=== PATIENT | male | born 1935 | race Caucasian/White ===

== ENCOUNTER 2016-05-12 19:20 | Inpatient (IN) | payer BC, OTHER ==
[~2016-05-12] VITALS: Ht 172.7 cm; Wt 64.5 kg
--- NOTE | 2016-05-12 21:14 | ERA ---
ER Documentation Chief Complaint Date/Time DATE: 05/12/16 TIME: 21:14 Chief Complaint feeling weak for a week and unsteady HPI The patient is a 81-year-old male, presenting to the ER because of headache, weakness, decreased appetite, intermittent cough for 1 week. His symptoms are getting worse and he is unable to walk because of the weakness. He fell once with a small hematoma in the right frontal area. He denies syncope, near syncope, neck pain, chest pain, dyspnea, abdominal pain, vomiting, dysuria, diarrhea, constipation. He complains of mild low back pain. He does not smoke nor drink Past medical history: Diabetes mellitus, dyslipidemia Past surgical history: None ROS All systems reviewed and are negative except as per history of present illness. Medications Home Meds Reported Medications Simvastatin* (Zocor*) 40 Mg Tablet, 40 MG PO DAILY, #30 TAB 05/12/16 Aspirin* (Aspirin* EC) 81 Mg Tablet.dr, 81 MG PO DAILY, TAB 05/12/16 Glimepiride* (Glimepiride*) Unknown Strength Tablet, MG PO WITH BREAKFAST, TAB 05/12/16 Metformin Hcl* (Metformin Hcl*) 500 Mg Tablet, 500 MG PO WITH BREAKFAST DINNE, # 60 TAB 05/12/16 Allergies Allergies: Coded Allergies: No Known Allergy (Unverified , 05/12/16) Physical Exam Vitals Vital Signs Date Time Temp Pulse Resp B/P Pulse Ox O2 Delivery O2 Flow Rate FiO2 05/12/16 22:36 67 20 97 21 05/12/16 21:31 Nasal Cannula 2 05/12/16 21:11 98.9 69 20 142/62 97 Room Air 05/12/16 19:56 100.9 79 18 139/62 95 Physical Exam Const: No acute distress. Head: Atraumatic. Right frontal ecchymosis and small hematoma Eyes: Normal Conjunctiva. ENT: Normal External Ears, Nose and Mouth. Neck: Full range of motion. No meningismus. Resp: Right lung crackle, bilateral wheezes Cardio: Regular rate and rhythm, no murmurs. Abd: Soft, non distended, normal bowel sounds, non tender. Skin: No petechiae or rashes. Back: No midline or flank tenderness. Ext: No cyanosis, or edema. Neur: Awake and alert. No focal deficit Psych: Normal Mood and Affect. Result Diagram: 05/12/16214405/12/162144 Results 24 hrs Laboratory Tests Test 05/12/16 21:45 05/12/16 22:16 Activated Partial Thromboplast Time 44.0Sec Alanine Aminotransferase (ALT/SGPT) 29IU/L Albumin 4.4g/dl Albumin/Globulin Ratio 1.00 Alkaline Phosphatase 71IU/L Anion Gap 22 Aspartate Amino Transf (AST/SGOT) 134IU/L Basophils # 0.010^3/ul Basophils % 0.1% Blood Urea Nitrogen 31mg/dl Calcium Level 9.9mg/dl Carbon Dioxide Level 25mmol/L Chloride Level 95mmol/L Creatinine 0.99mg/dl Direct Bilirubin 0.00mg/dl Eosinophils # 0.010^3/ul Eosinophils % 0.1% Globulin 4.40g/dl Glucose Level 141mg/dl Hematocrit 46.3% Hemoglobin 15.7g/dl INR International Normalized Ratio 1.03 Indirect Bilirubin 0.4mg/dl Lactic Acid Level 1.8mmol/L Lymphocytes # 0.810^3/ul Lymphocytes % 13.3% Mean Corpuscular Hemoglobin 31.0pg Mean Corpuscular Hemoglobin Concent 33.8g/dl Mean Corpuscular Volume 91.5fl Mean Platelet Volume 8.7fl Monocytes # 0.710^3/ul Monocytes % 12.7% Neutrophils # 4.310^3/ul Neutrophils % 73.8% Nucleated Red Blood Cells # 0.010^3/ul Nucleated Red Blood Cells % 0.0/100WBC Platelet Count 71020^3/UL Potassium Level 5.7mmol/L Prothrombin Time 13.5Sec Prothrombin Time Ratio 1.1 Red Blood Count 5.0610^6/ul Red Cell Distribution Width 13.4% Sodium Level 136mmol/L Total Bilirubin 0.4mg/dl Total Protein 8.8g/dl Troponin I 6.720ng/ml White Blood Count 5.910^3/ul Urine Bacteria MANY Urine Bilirubin 2+ Urine Clarity CLOUDY Urine Coarse Granular Casts FEW Urine Color YELLOW Urine Glucose NEGATIVE% Urine Hemoglobin 3+ Urine Ictotest NEGATIVE Urine Ketones 40 Urine Leukocyte Esterase NEGATIVE Urine Microscopic RBC 2-5/HPF Urine Microscopic WBC 0-2/HPF Urine Nitrite NEGATIVE Urine Specific [place] >=1.030 Urine Squamous Epithelial Cells RARE Urine Total Protein 4+ Urine Urobilinogen 1.0 E.U./dL Urine pH 5.5 Current Medications Medications (Trade) Dose Ordered Sig/Clark Route PRN Reason Start Time Stop Time Status Last Admin Dose Admin Levalbuterol (Xopenex Neb) 1.25 mg ONCE ONCE HHN 05/12/16 21:30 05/12/16 21:31 DC 05/12/16 22:36 Ipratropium [place] 0.5 mg 0.5 mg ONCE ONCE HHN 05/12/16 21:30 05/12/16 21:31 DC 05/12/16 22:36 Vancomycin HCl 250 ml @ 125 mls/hr ONCE IVPB 05/12/16 22:30 05/13/16 00:29 Cefepime HCl 50 ml @ 100 mls/hr ONCE ONCE IVPB 05/12/16 22:30 05/12/16 22:59 DC 05/12/16 22:46 Sodium Chloride (NS) 2,050 ml @ 2,050 mls/hr BOLUS X1 ONCE IV 05/12/16 22:30 05/12/16 23:29 05/12/16 22:46 Enoxaparin Sodium (Lovenox) 65 mg Q12 SC 05/12/16 23:00 Aspirin (Halfprin) 81 mg DAILY PO 05/13/16 09:00 Atorvastatin Calcium (Lipitor) 20 mg DAILY@21 PO 05/13/16 21:00 Insulin Aspart (Novolog Insulin Pen) NOVOLOG *MODERATE* ALGORI... Q4 SC 05/13/16 01:00 Miscellaneous Information (* Miscellaneous Pharmacy Order) HYPOGLYCEMIA PROTOCOL w... ONCE ONCE XX 05/12/16 23:00 05/12/16 23:01 DC Miscellaneous Information (* Miscellaneous Pharmacy Order) Discontinue Glyburide, Glipizide,... ONCE ONCE XX 05/12/16 23:00 05/12/16 23:01 DC Miscellaneous Information (* Miscellaneous Pharmacy Order) Discontinue all previ... ONCE ONCE XX 05/12/16 23:00 05/12/16 23:01 DC Miscellaneous Information 1 ea NOTE XX 05/12/16 23:00 Glucose (Glutose) 15 gm Q15M PRN PO DECREASED GLUCOSE 05/12/16 23:00 Glucose (Glutose) 22.5 gm Q15M PRN PO DECREASED GLUCOSE 05/12/16 23:00 Dextrose (D50w Syringe) 25 ml Q15M PRN IV DECREASED GLUCOSE 05/12/16 23:00 Dextrose (D50w Syringe) 50 ml Q15M PRN IV DECREASED GLUCOSE 05/12/16 23:00 Glucagon (Glucagen) 1 mg Q15M PRN IM DECREASED GLUCOSE 05/12/16 23:00 Glucose (Glutose) 15 gm Q15M PRN BUCCAL DECREASED GLUCOSE 05/12/16 23:00 IV Flush (NS 3 ml) 3 ml PER PROTOCOL IV 05/12/16 23:00 Ondansetron HCl (Zofran Inj) 4 mg Q6H PRN IV NAUSEA AND/OR VOMITING 05/12/16 23:00 Acetaminophen (Tylenol Tab) 650 mg Q6H PRN PO PAIN LEVEL 1-3 OR FEVER 05/12/16 23:00 Morphine Sulfate (morphine) 2 mg Q4H PRN IV PAIN LEVEL 7-10 05/12/16 23:00 Docusate Sodium (Colace) 100 mg Q12H PRN PO CONSTIPATION 05/12/16 23:00 Magnesium Hydroxide (Milk Of Mag) 30 ml DAILY PRN PO CONSTIPATION 05/12/16 23:00 Bisacodyl (Dulcolax Supp) 10 mg DAILY PRN [place] CONSTIPATION 05/12/16 23:00 Famotidine (Pepcid) 20 mg Q12 PO 05/13/16 09:00 Aspirin (Aspirin) 325 mg ONCE ONCE PO 05/12/16 23:30 05/12/16 23:31 UNV Enoxaparin Sodium 70 mg 70 mg ONCE SC 05/12/16 23:30 UNV Levofloxacin/ Dextrose (Levaquin 750 Mg/ D5W 150 ml (Pmx)) 150 ml @ 100 mls/hr Q24H IVPB 05/13/16 09:00 UNV Procedures/MDM EKG: Read by emergency physician at 7:29 PM Rate/Rhythm: Normal Sinus Rhythm 80 beats/min QRS, ST, T-waves: No ST elevation, no T inversion, THEODORE Impression: Abnormal EKG EKG: Read by emergency physician at 10:34 PM Rate/Rhythm: Normal Sinus Rhythm 66 beats/min QRS, ST, T-waves: No ST elevation, no T inversion, THEODORE Impression: Abnormal EKG [place] [id number] Radiology Main Line: [phone] DIAGNOSTIC IMAGING REPORT Patient: DINORA HERNANDEZ : 1935 Age: 81 Sex: M MR #: [id number] DOS: 05/12/162121 Ordering MD: MANINDER SHAY MD Location: E/R Room/Bed: PROCEDURE: XR Chest. CLINICAL INDICATION: Possible sepsis. TECHNIQUE: Single frontal view of the chest was obtained COMPARISON: None FINDINGS: Cardiomegaly. Dense air space disease in the right upper lobe compatible with pneumonia. Left lung is clear. There is no pleural effusion or pneumothorax. IMPRESSION: Dense right upper lobe pneumonia. RPTAT: UU Physician Dada Date Time Electronically viewed and signed by Sancho Suresh Physician on 05/12/2016 21:54 RS/ CC: MANINDER SHAY MD [place] [id number] Radiology Main Line: [phone] DIAGNOSTIC IMAGING REPORT Patient: DINORA HERNANDEZ : 1935 Age: 81 Sex: M MR #: [id number] DOS: 05/12/16 214 Ordering MD: MANINDER SHAY MD Location: E/R Room/Bed: PROCEDURE: CT brain without contrast. CLINICAL INDICATION: Headache. TECHNIQUE: CT scan of the brain was performed on a single slice CT scanner. Contiguous axial images were obtained from the skull base to the vertex without intravenous contrast. Images were reviewed on the PACS workstation. One or more of the following dose reduction techniques were used: - Automated exposure control. - Adjustment of the mA and/or kV according to patient size. - Use of iterative reconstruction technique. COMPARISON: None. FINDINGS: The ventricles and cortical sulci are prominent consistent with moderate age related volume loss. There are patchy areas of low attenuation within the periventricular and subcortical white matter consistent with mild chronic ischemic changes secondary to small vessel disease. There is no mass effect or midline shift. There is no intracranial hemorrhage or abnormal extra-axial collection. There are atherosclerotic calcifications within bilateral distal internal carotid arteries. The calvarium is intact. There is no evidence of fracture. Visualized paranasal sinuses and mastoid air cells are clear. IMPRESSION: No acute intracranial abnormality identified. Moderate age related volume loss and mild chronic ischemic white matter disease. Cerebral atherosclerosis. .Derrell Hguhes MD, MD Date Time Electronically viewed and signed by .Derrell Hughes MD, MD on 05/12/2016 22:59 .T/ CC: MANINDER SHAY MD MEDICAL MAKING DECISION: The patient is a 81-year-old male, presenting with acute pneumonia, acute non-STEMI, acute dehydration. He was treated with aspirin 325 mg p.o., Lovenox 1 mg/kg subcutaneously, vancomycin IV, cefepime IV , normal saline 30 mL/kg IV. The differential diagnoses considered include but are not limited to asthma, COPD, pneumonia, pulmonary embolus, pleural effusion, congestive heart failure. Critical Care: Time: 35 minutes excluding all billable procedures. Treatments/Evaluations: Close monitoring and treatment of unstable vital signs, cardiorespiratory, and neurologic status, while maintaining tight balance of fluid, respiratory, and cardiac interventions. Departure Diagnosis: Primary Impression: Pneumonia Additional Impressions: Non-STEMI (non-ST elevated myocardial infarction) Dehydration Condition: Serious Comments I discussed the findings with the patient. I discussed the patient with his physician Dr. Taylor who was made aware of the lab, the treatment, the patient condition. The patient is admitted to telemetry at 10 PM The patient's blood pressure was elevated (>120/80) but appears stable without evidence of hypertension emergency or urgency. The patient was counseled about the risks of hypertension and urged to pursue outpatient monitoring and therapy within a week after discharge with their primary care physician. MANINDER SHAY MD May 12, 2016 21:14
[2016-05-12] MEDS ORDERED: LEVALBUTEROL (NEB) 1.25 MG/0.5 ML AMP HHN ONE (21:30)
[2016-05-12] MEDS ORDERED: IPRATROPIUM (NEB) 0.5 MG/2.5 ML AMP HHN ONE (21:30)
[2016-05-12] MEDS ORDERED: METF-382 PO (21:43)
[2016-05-12] MEDS ORDERED: GLIM2TAB PO (21:43)
[2016-05-12] MEDS ORDERED: ASPI-664 PO (21:43)
[2016-05-12] MEDS ORDERED: SIMV40TA2 PO (21:44)
--- NOTE | 2016-05-12 21:55 | RADRPT ---
PROCEDURE: XR Chest. CLINICAL INDICATION: Possible sepsis. TECHNIQUE: Single frontal view of the chest was obtained COMPARISON: None FINDINGS: Cardiomegaly. Dense air space disease in the right upper lobe compatible with pneumonia. Left lung is clear. There is no pleural effusion or pneumothorax. IMPRESSION: Dense right upper lobe pneumonia. RPTAT: UU Physician Dada Date Time Electronically viewed and signed by Sancho Suresh Physician on 05/12/2016 21:54 RS/
[2016-05-12 22:12] LABS: ALBUMIN 4.4 g/dl (3.3-4.9)
[2016-05-12 22:13] LABS: BASOPHILS % 0.1 % (0.0-2.0); EOSINOPHILS % 0.1 % (0.0-7.0); HEMATOCRIT 46.3 % (42.0-52.0); HEMOGLOBIN 15.7 g/dl (14.0-18.0); LYMPHOCYTES # 0.8 10^3/ul (0.8-2.9); LYMPHOCYTES % 13.3 % (15.0-51.0); MEAN CORPUSCULAR HGB CONC 33.8 g/dl (32.0-37.0); MEAN CORPUSCULAR VOLUME 91.5 fl (82.0-101.0); MEAN PLATELET VOLUME 8.7 fl (7.4-10.4); MONOCYTE # 0.7 10^3/ul (0.3-0.9); MONOCYTES % 12.7 % (0.0-11.0); NEUTROPHIL # 4.3 10^3/ul (1.6-7.5); NEUTROPHILS % 73.8 % (39.0-77.0); PLATELET COUNT 275 10^3/UL (140-440); POTASSIUM 5.7 mmol/L (3.5-5.1); RED BLOOD COUNT 5.06 10^6/ul (4.70-6.10); RED CELL DISTRIBUTION WIDTH 13.4 % (11.5-14.5); UNCORRECTED WBC 5.9 10^3/ul (4.8-10.8); WHITE BLOOD COUNT 5.9 10^3/ul (4.8-10.8)
[2016-05-12 22:14] LABS: CREATININE 0.99 mg/dl (0.61-1.24)
[2016-05-12 22:15] LABS: BILIRUBIN,INDIRECT 0.4 mg/dl (0-1.1); BILIRUBIN,TOTAL 0.4 mg/dl (0.2-1.3); CALCIUM 9.9 mg/dl (8.4-10.2); TOTAL PROTEIN 8.8 g/dl (6.1-8.1)
[2016-05-12 22:17] LABS: CONDITION 1
[2016-05-12 22:27] LABS: TROPONIN-I 6.72 ng/ml (0.00-0.12)
[2016-05-12] MEDS ORDERED: SOD CHLORIDE 0.9% 2,050 ML IV ONE (22:30)
[2016-05-12] MEDS ORDERED: CEFEPIME 1GM/50 ML (PMX) 50 ML IVPB ONE (22:30)
[2016-05-12] MEDS ORDERED: VANCOMYCIN 1 GM (PMX) 250 ML IVPB SCH (22:30)
[2016-05-12 22:43] LABS: ADD UMIC YES; URINE BILIRUBIN (Dip) 2+ (NEGATIVE); URINE BLOOD (Dip) 3+ (NEGATIVE); URINE COLOR YELLOW (YELLOW); URINE GLUCOSE (Dip) NEGATIVE (NEGATIVE); URINE KETONES (Dip) 40 (NEGATIVE); URINE LEUKOCYTE ESTERASE (Dip) NEGATIVE (NEGATIVE); URINE NITRITE (Dip) NEGATIVE (NEGATIVE); URINE TOTAL PROTEIN (Dip) 4+ (NEGATIVE); URINE UROBILINOGEN (Dip) 1.0 E.U./dL (0.1-1.0)
[2016-05-12 22:58] LABS: SQUAMOUS EPITHELIAL CELL,UR RARE
[2016-05-12 22:59] LABS: BACTERIA,URINE MANY
--- NOTE | 2016-05-12 22:59 | RADRPT ---
PROCEDURE: CT brain without contrast. CLINICAL INDICATION: Headache. TECHNIQUE: CT scan of the brain was performed on a single slice CT scanner. Contiguous axial chelsie ges were obtained from the skull base to the vertex without intravenous contrast. Images were revie wed on the PACS workstation. One or more of the following dose reduction techniques were used: - Automated exposure control. - Adjustment of the mA and/or kV according to patient size. - Use of iterative reconstruction technique. COMPARISON: None. FINDINGS: The ventricles and cortical sulci are prominent consistent with moderate age related volume loss. T here are patchy areas of low attenuation within the periventricular and subcortical white matter con sistent with mild chronic ischemic changes secondary to small vessel disease. There is no mass effe ct or midline shift. There is no intracranial hemorrhage or abnormal extra-axial collection. There are atherosclerotic calcifications within bilateral distal internal carotid arteries. The calvarium is intact. There is no evidence of fracture. Visualized paranasal sinuses and mastoi d air cells are clear. IMPRESSION: No acute intracranial abnormality identified. Moderate age related volume loss and mild chronic ischemic white matter disease. Cerebral atherosclerosis. .Derrell Hughes MD, MD Date Time Electronically viewed and signed by .Derrell Hughes MD, MD on 05/12/2016 22:59 .T/
[2016-05-12] MEDS ORDERED: ACETAMINOPHEN 325 MG TAB PO PRN (23:00)
[2016-05-12] MEDS ORDERED: GLUCOSE GEL 15 GRAM TUBE BUCCAL PRN (23:00)
[2016-05-12] MEDS ORDERED: BISACODYL 10 MG SUPP PR PRN (23:00)
[2016-05-12] MEDS ORDERED: GLUCOSE GEL 15 GRAM TUBE PO PRN ×2 (23:00)
[2016-05-12] MEDS ORDERED: ONDANSETRON 4 MG INJ IV PRN (23:00)
[2016-05-12] MEDS ORDERED: DOCUSATE SODIUM 100 MG CAP PO PRN (23:00)
[2016-05-12] MEDS ORDERED: GLUCAGON 1 MG INJ IM PRN (23:00)
[2016-05-12] MEDS ORDERED: DEXTROSE 50% 50 ML SYRINGE IV PRN ×2 (23:00)
[2016-05-12] MEDS ORDERED: NACL 0.9% 3 ML SYG IV SCH (23:00)
[2016-05-12] MEDS ORDERED: MAGNESIUM HYDROXIDE 30ML CUP PO PRN (23:00)
[2016-05-12 23:01] LABS: ICTOTEST NEGATIVE (NEGATIVE)
[2016-05-12 23:05] LABS: INR 1.03; PROTIME 13.5 Sec (12.2-14.2); PT RATIO 1.1
[2016-05-12] MEDS ORDERED: ASPIRIN 325 MG TAB PO ONE (23:30)
[2016-05-12] MEDS ORDERED: ENOXAPARIN 80 MG/0.8 ML SYG SC SCH (23:30)
[2016-05-12] MEDS: ENOXAPARIN 80 MG/0.8 ML SYG SC SCH (23:32)
[2016-05-12] MEDS: morphine 2 MG INJ IV PRN (23:32)
--- NOTE | 2016-05-12 23:43 | RADRPT ---
PROCEDURE: US DVT. CLINICAL INDICATION: Bilateral lower extremity pain and swelling. TECHNIQUE: Multiple longitudinal and transverse images of the bilateral lower extremity veins were obtained with ewing scale and color Doppler imaging. 2D grayscale measurements with compression, co evelyn Doppler flow, and augmentation was performed. The calf veins were interrogated as well. COMPARISON: No prior studies are available for comparison. FINDINGS: The bilateral common femoral, superficial femoral and popliteal veins are normally compressible thro ughout. Color flow demonstrates normal filling of the vessel. Normal waveforms are visualized and there is normal response to augmentation. The calf veins are visualized and are equally unremarkabl e. IMPRESSION: 1. No evidence of a deep vein thrombosis involving either lower extremity. RPTAT: HFN .Clara Pierce MD, Date Time Electronically viewed and signed by .Clara Pierce MD, MD on 05/12/2016 23:42 .N/
[2016-05-13] MEDS ORDERED: HYDROCODONE/APAP (10/325) TAB PO ONE (01:00)
[2016-05-13] MEDS: INSULIN ASPART [NOVOLOG] 3 ML PEN SC SCH ×6 (01:00→21:00)
[2016-05-13] MEDS: LEVOFLOXACIN 750MG/D5W (PMX) 150 ML IVPB SCH (05:23)
[2016-05-13 06:00] LABS: ALBUMIN 3.1 g/dl (3.3-4.9)
[2016-05-13 06:01] LABS: POTASSIUM 3.8 mmol/L (3.5-5.1)
[2016-05-13 06:03] LABS: CREATININE 0.79 mg/dl (0.61-1.24)
[2016-05-13 06:04] LABS: ALBUMIN/GLOBULIN RATIO 0.93; CALCIUM 8.2 mg/dl (8.4-10.2); HEMATOCRIT 36.9 % (42.0-52.0); HEMOGLOBIN 11.9 g/dl (14.0-18.0); MAGNESIUM 1.9 mg/dl (1.7-2.5); MEAN CORPUSCULAR HEMOGLOBIN 30.1 pg (29.0-33.0); MEAN CORPUSCULAR HGB CONC 32.2 g/dl (32.0-37.0); MEAN CORPUSCULAR VOLUME 93.4 fl (82.0-101.0); PLATELET COUNT 212 10^3/UL (140-440); RED BLOOD COUNT 3.95 10^6/ul (4.70-6.10); RED CELL DISTRIBUTION WIDTH 12.6 % (11.5-14.5); TOTAL PROTEIN 6.4 g/dl (6.1-8.1); WHITE BLOOD COUNT 4.7 10^3/ul (4.8-10.8)
[2016-05-13 06:05] LABS: BASOPHILS % 0.2 % (0.0-2.0); LYMPHOCYTES # 0.6 10^3/ul (0.8-2.9); LYMPHOCYTES % 12.4 % (15.0-51.0); MEAN PLATELET VOLUME 10.4 fl (7.4-10.4); MONOCYTES % 16.7 % (0.0-11.0); NEUTROPHIL # 3.3 10^3/ul (1.6-7.5); NEUTROPHILS % 69.8 % (39.0-77.0)
[2016-05-13 06:06] LABS: MONOCYTE # 0.8 10^3/ul (0.3-0.9)
[2016-05-13 06:12] LABS: CK-MB 11.1 ng/ml (0.0-2.4)
[2016-05-13 06:18] LABS: TROPONIN-I 3.05 ng/ml (0.00-0.12)
[2016-05-13] MEDS: ASPIRIN (EC) 81 MG TAB PO SCH (09:13)
[2016-05-13] MEDS: FAMOTIDINE 20 MG TAB PO SCH ×2 (09:13→20:33)
[2016-05-13] MEDS: ENOXAPARIN 80 MG/0.8 ML SYG SC SCH ×2 (09:14→20:36)
[2016-05-13] MEDS ORDERED: IODIXANOL LOCM 50 ML BTL ONE (11:40)
[2016-05-13] MEDS ORDERED: SOD CHLORIDE 0.9% 100 ML ONE ×2 (11:40→15:53)
[2016-05-13] MEDS ORDERED: IODIXANOL LOCM 100 ML BTL ONE ×3 (11:40→15:53)
[2016-05-13 11:49] LABS: CK-MB 10.4 ng/ml (0.0-2.4)
[2016-05-13 12:01] LABS: TROPONIN-I 1.81 ng/ml (0.00-0.12)
--- NOTE | 2016-05-13 12:24 | RADRPT ---
PROCEDURE: CT angiogram of the chest with contrast. CLINICAL INDICATION: Rule out pulmonary embolism. TECHNIQUE: CT scan of the chest with contrast was performed on a multidetector high-resolution CT scan. The patient was scanned following the uncomplicated intravenous administration of 120 ml Visi paque 320. Coronal and sagittal reformatted images were obtained from the axial source images. Stand dani CT angiogram of the chest with contrast protocols were performed. The total exam CTDI equals 13.33 mGy and the total exam DLP equals 516.49 mGy-cm. One or more of the following dose reduction techniques were used: - Automated exposure control. - Adjustment of the mA and/or kV according to patient size. Use of iterative reconstruction technique. COMPARISON: Chest series 05/12/2016 FINDINGS: The pulmonary outflow tract, right left main pulmonary arteries and right and left interlobar and in the proximal intersegmental pulmonary arteries are well enhance without central pulmonary emboli. There is mild hard atherosclerotic vascular disease of the thoracic and proximal abdominal aorta but no evidence of aneurysm or periaortic fluid collections. The heart is within normal limits in size . No evidence of pericardial effusion. There is a trace left pleural effusion. There are small to moderate right pleural effusion. Negative for pneumothoraces. There is bilateral apical pleural t hickening more extensive on the left. There are peripheral consolidations involving the right lower lobe and right middle lobe with more central and ground-glass opacities and bronchiectasis consisten t with bronchitis and pneumonia. Additional parenchymal changes involving the right middle lobe and left upper and lower lobes consistent with scarring. Bilateral central lobular emphysema. No evidence of pulmonary nodules bilaterally. There is a huge hiatal hernia. Images of the upper abdom en are otherwise unremarkable. IMPRESSION: 1. No evidence of central pulmonary emboli. 2. Mild atherosclerotic vascular disease of the aorta but no aneurysm. 3. Right upper lobe and right lower lobe bronchitis and pneumonia. 3. Small to moderate right pleural effusion. 4. Trace left pleural effusion. 5. COPD and underlying chronic parenchymal lung disease as described above. 6. Huge hiatal hernia. RPTAT:AAJJ Physician Elmer Date Time Electronically viewed and signed by Physician Elmer on 05/13/2016 12:24 BM/
--- NOTE | 2016-05-13 13:40 | PN ---
Date/Time of Note Date/Time of Note DATE: 05/13/16 TIME: 13:39 Assessment/Plan VTE Prophylaxis VTE Prophylaxis Intervention: SCD's Assessment/Plan Assessment/Plan PNA NSTEMI DM HLP -CONTINUE ABX -CHECK ECHO, EKG, TROPS ASA/STATIN/ACEI/BBLOCKER -WILL PLAN FOR CORONARY CTA NO CHEST PAIN AND NO SOB FOR THE PATIENT Subjective 24 Hr Interval Summary Free Text/Dictation The patient is a 81-year-old male, presenting to the ER because of headache, weakness, decreased appetite, intermittent cough for 1 week. His symptoms are getting worse and he is unable to walk because of the weakness. He fell once with a small hematoma in the right frontal area. He denies syncope, near syncope, neck pain, chest pain, dyspnea, abdominal pain, vomiting, dysuria, diarrhea, constipation. He complains of mild low back pain. He does not smoke nor drink The patinet has an elevated troponin but no chest pain, no sob and no overt chf wiht no cardiac hsitory Exam/Review of Systems Vital Signs Vitals Vital Signs Date Time Temp Pulse Resp B/P Pulse Ox O2 Delivery O2 Flow Rate FiO2 05/13/16 12:15 98.0 50 18 149/71 98 Nasal Cannula 2.0 05/12/16 22:36 21 Results Result Diagram: 05/13/16 0522 05/13/16 0522 Results 24 hrs Laboratory Tests Test 05/12/16 21:45 05/12/16 22:16 05/12/16 23:15 05/13/16 01:07 Activated Partial Thromboplast Time 44.0 H Alanine Aminotransferase (ALT/SGPT) 29 Albumin 4.4 Albumin/Globulin Ratio 1.00 Alkaline Phosphatase 71 Anion Gap 22 H Aspartate Amino Transf (AST/SGOT) 134 H Basophils # 0.0 Basophils % 0.1 Blood Urea Nitrogen 31 H Calcium Level 9.9 Carbon Dioxide Level 25 Chloride Level 95 L Creatinine 0.99 Direct Bilirubin 0.00 Eosinophils # 0.0 Eosinophils % 0.1 Globulin 4.40 H Glucose Level 141 Hematocrit 46.3 Hemoglobin 15.7 INR International Normalized Ratio 1.03 Indirect Bilirubin 0.4 Lactic Acid Level 1.8 1.5 Lymphocytes # 0.8 Lymphocytes % 13.3 L Mean Corpuscular Hemoglobin 31.0 Mean Corpuscular Hemoglobin Concent 33.8 Mean Corpuscular Volume 91.5 Mean Platelet Volume 8.7 Monocytes # 0.7 Monocytes % 12.7 H Neutrophils # 4.3 Neutrophils % 73.8 Nucleated Red Blood Cells # 0.0 Nucleated Red Blood Cells % 0.0 Platelet Count 275 Potassium Level 5.7 H Prothrombin Time 13.5 Prothrombin Time Ratio 1.1 Red Blood Count 5.06 Red Cell Distribution Width 13.4 Sodium Level 136 Total Bilirubin 0.4 Total Protein 8.8 H Troponin I 6.720 *H White Blood Count 5.9 Urine Bacteria MANY Urine Bilirubin 2+ H Urine Clarity CLOUDY H Urine Coarse Granular Casts FEW Urine Color YELLOW Urine Glucose NEGATIVE Urine Hemoglobin 3+ H Urine Ictotest NEGATIVE Urine Ketones 40 Urine Leukocyte Esterase NEGATIVE Urine Microscopic RBC 2-5 Urine Microscopic WBC 0-2 Urine Nitrite NEGATIVE Urine Specific [place] >=1.030 H Urine Squamous Epithelial Cells RARE Urine Total Protein 4+ H Urine Urobilinogen 1.0 E.U./dL Urine pH 5.5 Bedside Glucose 112 Test 05/13/16 03:40 05/13/16 05:22 05/13/16 09:26 05/13/16 11:06 Bedside Glucose 120 120 Alanine Aminotransferase (ALT/SGPT) 38 Albumin 3.1 #L Albumin/Globulin Ratio 0.93 Alkaline Phosphatase 61 Anion Gap 21 H Aspartate Amino Transf (AST/SGOT) 85 H Basophils # 0.0 Basophils % 0.2 Blood Urea Nitrogen 27 H Calcium Level 8.2 L Carbon Dioxide Level 19 L Chloride Level 102 Cholesterol Level 113 Cholesterol/HDL Ratio 7.0 Creatine Kinase 1240 H 1014 H Creatine Kinase Index 0.9 1.0 Creatinine 0.79 Creatinine Kinase MB (Mass) 11.10 H 10.40 H Direct Bilirubin 0.00 Eosinophils # 0.0 Eosinophils % 0.0 Globulin 3.30 H Glucose Level 136 HDL Cholesterol 16 L Hematocrit 36.9 #L Hemoglobin 11.9 #L Hemoglobin A1c 7.1 H Indirect Bilirubin 0.0 LDL Cholesterol, Calculated 58 Lactic Acid Level 0.9 Lymphocytes # 0.6 L Lymphocytes % 12.4 L Magnesium Level 1.9 Mean Corpuscular Hemoglobin 30.1 Mean Corpuscular Hemoglobin Concent 32.2 Mean Corpuscular Volume 93.4 Mean Platelet Volume 10.4 Monocytes # 0.8 Monocytes % 16.7 H Neutrophils # 3.3 Neutrophils % 69.8 Nucleated Red Blood Cells # 0.0 Nucleated Red Blood Cells % 0.0 Platelet Count 212 # Potassium Level 3.8 Red Blood Count 3.95 #L Red Cell Distribution Width 12.6 Sodium Level 138 Total Bilirubin 0.0 L Total Protein 6.4 # Triglycerides Level 195 H Troponin I 3.050 *H 1.810 *H White Blood Count 4.7 #L Test 05/13/16 13:05 Bedside Glucose 99 Medications Medications Current Medications Enoxaparin Sodium (Lovenox) 65 mg Q12 SC Last administered on 05/13/16 09:14; Admin Dose 65 MG; Start 05/12/16 at 23:00 Aspirin (Halfprin) 81 mg DAILY PO Last administered on 05/13/16 09:13; Admin Dose 81 MG; Start 05/13/16 at 09:00 Atorvastatin Calcium (Lipitor) 20 mg DAILY@21 PO ; Start 05/13/16 at 21:00 Insulin Aspart (Novolog Insulin Pen) NOVOLOG *MODERATE* ALGORI... Q4 SC ; Start 05/13/16 at 01:00 Miscellaneous Information 1 ea NOTE XX ; Start 05/12/16 at 23:00 Glucose (Glutose) 15 gm Q15M PRN PO DECREASED GLUCOSE; Start 05/12/16 at 23:00 Glucose (Glutose) 22.5 gm Q15M PRN PO DECREASED GLUCOSE; Start 05/12/16 at 23: 00 Dextrose (D50w Syringe) 25 ml Q15M PRN IV DECREASED GLUCOSE; Start 05/12/16 at 23:00 Dextrose (D50w Syringe) 50 ml Q15M PRN IV DECREASED GLUCOSE; Start 05/12/16 at 23:00 Glucagon (Glucagen) 1 mg Q15M PRN IM DECREASED GLUCOSE; Start 05/12/16 at 23:00 Glucose (Glutose) 15 gm Q15M PRN BUCCAL DECREASED GLUCOSE; Start 05/12/16 at 23 :00 Ondansetron HCl (Zofran Inj) 4 mg Q6H PRN IV NAUSEA AND/OR VOMITING Last administered on 05/13/16 03:34; Admin Dose 4 MG; Start 05/12/16 at 23:00 Acetaminophen (Tylenol Tab) 650 mg Q6H PRN PO PAIN LEVEL 1-3 OR FEVER; Start at 23:00 Morphine Sulfate (morphine) 2 mg Q4H PRN IV PAIN LEVEL 7-10 Last administered on 05/12/16 23:32; Admin Dose 2 MG; Start 05/12/16 at 23:00 Docusate Sodium (Colace) 100 mg Q12H PRN PO CONSTIPATION; Start 05/12/16 at 23: 00 Magnesium Hydroxide (Milk Of Mag) 30 ml DAILY PRN PO CONSTIPATION; Start at 23:00 Bisacodyl (Dulcolax Supp) 10 mg DAILY PRN [place] CONSTIPATION; Start 05/12/16 at 23 :00 Famotidine 20 mg 20 mg Q12 PO Last administered on 05/13/16 09:13; Admin Dose 20 MG; Start 05/13/16 at 09:00 Levofloxacin/ Dextrose (Levaquin 750 Mg/ D5W 150 ml (Pmx)) 150 ml @ 100 mls/hr Q24H IVPB Last administered on 05/13/16 05:23; Admin Dose 100 MLS/HR; Start at 06:00 BERNADINE ECHEVARRIA MD May 13, 2016 13:40
[2016-05-13] MEDS ORDERED: BENAZEPRIL 5 MG TAB PO ONE (14:00)
[2016-05-13 14:06] VITALS: TEMP 98.1
[2016-05-13] MEDS ORDERED: VANCOMYCIN IV PER PHARMACY XX SCH (14:30)
[2016-05-13 15:00] VITALS: BP 154/64; PULSE 50; RESP 18; Ht 172.7 cm; Wt 64.5 kg
--- NOTE | 2016-05-13 15:06 | RADRPT ---
Echocardiogram Report Patient Name: DINORA HERNANDEZ Gender: Male Date: 1935 Study Date: 13-May-2016 Data Reviewer: Saúl Cason RDCS Location: [facility] Ref. Physician: JERMAINE VIDES Quality: Good Procedures: Transthoracic echocardiogram with complete 2D, M-Mode, and doppler examination. Indications: NSTEMI. 2D/M Mode Doppler Measurement Value Normal Ranges Measurement Value Normal Ranges LVIDd 2D 4.7 3.5 - 5.6 cm AV Peak Zia 1.0 m/sec LVIDs 2D 2.8 2.1 - 4.1 cm AV Peak PG 4.0 mmHg FS 2D 40.7 % LVOT Peak Zia 0.8 m/sec LVPWd 2D 1.0 0.6 - 1.1 cm LVOT Peak PG 3.0 mmHg IVSd 2D 0.9 0.6 - 1.1 cm MV E Peak Zia 0.5 m/sec IVS/LVPW 2D 0.9 MV A Peak Zia 0.9 m/sec AoR Diam 2D 3.0 2.0 - 3.7 cm MV E/A 0.5 LA/Ao 2D 1 0 - 1 MV Decel Time 148 msec EDV 2D 105.0 cm3 MV E/A 0.5 ESV 2D 22.0 cm3 TR Peak Zia 3.2 m/sec LA Dimen 2D 3.1 2.3 - 4.0 cm TR Peak PG 41.0 mmHg RVSP 44.0 mmHg Findings Left Ventricle: Normal left ventricular systolic function. Normal left ventricular cavity size. Mild asymmetric septal hypertrophy. Ejection fraction is visually estimated at 60 %. Tissue Doppler/Mitral Doppler indices are consistent with impaired relaxation (Stage I diastolic dysfunction). Right Ventricle: Normal right ventricular size. Normal right ventricular systolic function. Left Atrium: The left atrium is normal in size. Right Atrium: The right atrium is normal in size. Mitral Valve: Normal appearance and function of the mitral valve with trace physiologic regurgitation. Aortic Valve: No significant aortic stenosis or insufficiency. Aortic cusps appear mildly calcified. Tricuspid Valve: Normal appearance of the tricuspid valve. Estimated peak PA systolic pressure 44 mmHg. There is mild to moderate tricuspid regurgitation. Pulmonic Valve: Normal pulmonic valve appearance. Pericardium: Normal pericardium with no significant pericardial effusion. Aorta: Normal aortic root. IVC: Normal size and normal respiratory collapse consistent with normal right atrial pressure. Conclusions Normal left ventricular systolic function. Normal left ventricular cavity size. Mild asymmetric septal hypertrophy. Ejection fraction is visually estimated at 60 %. Tissue Doppler/Mitral Doppler indices are consistent with impaired relaxation (Stage I diastolic dysfunction). Normal right ventricular size. Normal right ventricular systolic function. The left atrium is normal in size. The right atrium is normal in size. Normal appearance of the tricuspid valve. Estimated peak PA systolic pressure 44 mmHg. There is mild to moderate tricuspid regurgitation. No significant valvular stenosis or regurgitation seen of remaining visualized valves. Normal pericardium with no significant pericardial effusion. Electronically Signed By: Sean Pena 13-May-2016 15:05:10 -0800 Patient Name: DINORA HERNANDEZ Study Date: 13-May-2016 [id number]
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
[2016-05-13] MEDS ORDERED: VANCOMYCIN 750 MG in SOD CHLORIDE 0.9% 150 ML IVPB SCH (15:30)
[2016-05-13] MEDS ORDERED: NITROGLYCERIN AEROSOL (4.9 GM) ONE (15:58)
[2016-05-13] MEDS: morphine 2 MG INJ IV PRN (16:56)
--- NOTE | 2016-05-13 18:01 | RADRPT ---
PROCEDURE: CTA OF THE HEART AND CORONARY ARTERIES WITH CONTRAST CT CALCIUM SCORE CLINICAL INDICATION: Chest pain COMPARISON: No previous relevant images are available for comparison. TECHNIQUE: CT calcium score performed without intravenous contrast. Multiphasic ECG-gated volumetri c acquisition from the ascending aorta to the diaphragm performed with intravenous contrast on a hig h-resolution multi detector scanner with multiphasic reconstructions. Multiplanar reconstructions, t hree-dimensional reconstructions, as well as maximal intensity projection images are produced and re viewed. One or more of the following dose reduction techniques were used: Automated exposure control ; Adjustment of the mA and/or kV according to patient size; Use of iterative reconstruction techniqu e; ECG dose modulation. CTDI = 8, 131, 69 mGy. DLP = 1184 mGy-cm. Stenosis classification of vessels greater than 1.5 mm in diameter: None0% Minimal1-24% Cdeb69-98% Bwbtjcmb40-92% Bcbzex64-70% Fpssydat626% (When a vessel appears focally occluded with distal reconstitution there may be trac e patency which is below the resolution of the examination or collateral pathways may exist.) CONTRAST: 50 mL of Visipaque 320 intravenously without adverse event. FINDINGS: CORONARY CT ANGIOGRAM: Overall quality of the CT angiographic examination is excellent. Normal origins of the coronary arteries are present. The coronary artery system is right dominant. Total calcium score: 858 Right Coronary Artery: A tortuous and partially concentric plaque is present at the ostium of the ve ssel which degraded visualization of the lumen and produces a calculated 60% stenosis. Small multifo sussy calcified and noncalcified plaques within the proximal, mid, distal portion of the vessel produc e less than 10% stenosis. Posterior descending and posterior lateral coronary artery branches are wi amanda patent. Left Main Coronary Artery: Short segment vessel with nearly immediate bifurcation. Calcified plaque is present at the ostium and throughout without significant stenosis in reference to the distal rachell meter. A small ramus intermedius branch is present which is widely patent. Left Anterior Descending Coronary Artery: Diffuse calcified and noncalcified plaque is present withi n the proximal segment of the first vessel with no disease-free reference segment prior to the origi n of the first diagonal branch. With reference diameter made to the portion of the vessel beyond th e first diagonal branch there appears to be 50% stenosis of the proximal segment. Subsequent plaque s within the midportion of the vessel produce severe degradation of the lumen and are concerning for a moderate - severe stenoses. Visualized septal and diagonal branches: First diagonal branch is widely patent. Moderate size seco nd diagonal branch demonstrates diffuse plaque at its origin producing an estimated 50% stenosis; th e vessel measures less than 1 mm in diameter which degrades precise evaluation. Left Circumflex Coronary Artery: Widely patent without focal irregularity, mural plaque, or signific ant stenosis. Visualized obtuse marginal branches: Concentric plaque completely obscures visualization of the orig in of the dominant first obtuse marginal branch concerning for severe stenosis. Smaller plaques jus t beyond this lesion produce 50% stenosis of the vessel. Normal appearance of the pericardium. No pericardial effusion. Minimal thickening and calcification of the trileaflet aortic valve. Minimal thickening of the mitr al valve leaflets which are only observed on diastolic phase images. Myocardial attenuation appears within normal limits. There is no evidence of significant subendocard ial low attenuation changes to suggest prior ischemic injury. Left atrial appendage is well opacified. No evidence of intracardiac mass or thrombus. EXTRACARDIAC FINDINGS: Thoracic aorta: Normal caliber. Pulmonary vessels: The central and proximal pulmonary arterial system is of normal caliber without i ntraluminal filling defect to suggest pulmonary embolic disease. Conventional pulmonary venous retur n. Chest: Partial visualization of right upper lobe pneumonia / pneumonitis better evaluated on the pat ient's CT scan performed earlier the same day. No mediastinal lymphadenopathy. Abdomen: Large hiatal hernia as previously described. Low attenuation changes in the liver are prese nt most compatible with hepatic steatosis. IMPRESSION: Total calcium score: 858 Right Coronary Artery: A tortuous and partially concentric plaque is present at the ostium of the ve ssel which degraded visualization of the lumen and produces a calculated 60% stenosis. Small multifo sussy calcified and noncalcified plaques within the proximal, mid, distal portion of the vessel produc e less than 10% stenosis. Left Main Coronary Artery: Short segment vessel with nearly immediate bifurcation. Calcified plaque is present at the ostium and throughout without significant stenosis in reference to the distal rachell meter. Left Anterior Descending Coronary Artery: Diffuse calcified and noncalcified plaque is present withi n the proximal segment of the first vessel with no disease-free reference segment prior to the origi n of the first diagonal branch. With reference diameter made to the portion of the vessel beyond th e first diagonal branch there appears to be 50% stenosis of the proximal segment. Subsequent plaque s within the midportion of the vessel produce severe degradation of the lumen and are concerning for a moderate - severe stenoses. Visualized septal and diagonal branches: Moderate size second diagonal branch demonstrates diffuse p laque at its origin producing an estimated 50% stenosis; the vessel measures less than [address] which degrades precise measurement. Left Circumflex Coronary Artery: Widely patent without focal irregularity, mural plaque, or signific ant stenosis. Visualized obtuse marginal branches: Concentric plaque completely obscures visualization of the orig in of the dominant first obtuse marginal branch concerning for severe stenosis. Smaller plaques jus t beyond this lesion produce 50% stenosis of the vessel. Given these findings additional imaging with nuclear perfusion imaging SPECT/PET or as clinically in dicated conventional coronary angiography suggested for further evaluation. Other noncardiac findings are better evaluated on the patient's prior CT scan of the chest performed earlier the same day. RPTAT: AADD .Kamlesh Greenberg MD, MD Date Time Electronically viewed and signed by .Kamlesh Greenberg MD, on 05/13/2016 18:01 .B/
[2016-05-13] MEDS ORDERED: VANCOMYCIN 1.25 GM in SOD CHLORIDE 0.9% 250 ML IVPB SCH (20:00)
[2016-05-13 20:03] VITALS: PULSE 59
[2016-05-13 20:09] LABS: CK-MB 7.57 ng/ml (0.0-2.4)
[2016-05-13 20:12] LABS: TROPONIN-I 1.8 ng/ml (0.00-0.12)
[2016-05-13] MEDS ORDERED: ATORVASTATIN 20 MG TAB PO SCH (21:00)
[2016-05-13 21:03] VITALS: BP 103/49; RESP 20
[2016-05-13] MEDS ORDERED: VITAMIN A & D 5 GM OINT PACKET TOP ONE (21:59)
[2016-05-14] VITALS (20 sets, daily range): BP systolic 91–116; BP diastolic 42–69; PULSE 56–77; RESP 16–32
[2016-05-14] MEDS: INSULIN ASPART [NOVOLOG] 3 ML PEN SC SCH ×6 (01:00→20:50)
[2016-05-14] MEDS: morphine 2 MG INJ IV PRN (03:17)
[2016-05-14] MEDS: LEVOFLOXACIN 750MG/D5W (PMX) 150 ML IVPB SCH (05:49)
[2016-05-14 06:45] LABS: MAGNESIUM 2.1 mg/dl (1.7-2.5); PHOSPHORUS 3.5 mg/dl (2.5-4.9)
[2016-05-14 07:27] LABS: HEMATOCRIT 45.4 % (42.0-52.0); HEMOGLOBIN 15.2 g/dl (14.0-18.0); MEAN CORPUSCULAR HEMOGLOBIN 30.4 pg (29.0-33.0); MEAN CORPUSCULAR HGB CONC 33.5 g/dl (32.0-37.0); MEAN CORPUSCULAR VOLUME 90.8 fl (82.0-101.0); WHITE BLOOD COUNT 5.8 10^3/ul (4.8-10.8)
[2016-05-14 07:28] LABS: EOSINOPHILS % 0.2 % (0.0-7.0); LYMPHOCYTES # 0.7 10^3/ul (0.8-2.9); LYMPHOCYTES % 12.3 % (15.0-51.0); MEAN PLATELET VOLUME 10.9 fl (7.4-10.4); MONOCYTE # 0.7 10^3/ul (0.3-0.9); MONOCYTES % 11.3 % (0.0-11.0); NEUTROPHIL # 4.4 10^3/ul (1.6-7.5); NEUTROPHILS % 75.5 % (39.0-77.0); PLATELET COUNT 291 10^3/UL (140-440); RED CELL DISTRIBUTION WIDTH 12.5 % (11.5-14.5)
[2016-05-14] MEDS: ASPIRIN (EC) 81 MG TAB PO SCH (09:00)
[2016-05-14] MEDS: FAMOTIDINE 20 MG TAB PO SCH (09:00)
--- NOTE | 2016-05-14 09:52 | CONS ---
Date/Time of Note Date/Time of Note DATE: 05/14/16 TIME: 09:45 Assessment/Plan Assessment/Plan Chief Complaint/Hosp Course 1) PNA 2) NSTEMI 3) Preserved LV function 4) DM Problems: Additional Assessment/Plan 1) increase statin 2) CATH/PCI the benefits and risks I dw patient 3) ASA 4) NPO except meds 5) Stop lovenox Consultation Date/Type/Reason Admit Date/Time May 12, 2016 at 23:21 Date of Consultation: May 14, 2016 Type of Consultation: cv Reason for Consultation DE Referring Provider: VIANNEY VIDES Hx of Present Illness No chest pain, no sob, no palpitations, but weak. ENT: no complaints Respiratory: no complaints Cardiovascular: no complaints Gastrointestinal: no complaints Musculoskeletal: no complaints Skin: no complaints Neurologic: no complaints Past Medical History Medical History: diabetes, hypertension Family History Significant Family History: hypertension Social History Alcohol Use: rarely Smoking Status: Never smoker Drug Use: none Exam/Review of Systems Vital Signs Vitals Vital Signs Date Time Temp Pulse Resp B/P Pulse Ox O2 Delivery O2 Flow Rate FiO2 05/14/16 08:05 59 05/14/16 07:36 98.3 18 106/54 95 05/13/16 15:00 Nasal Cannula 2.0 05/12/16 22:36 21 Intake and Output 05/13/16 05/13/16 05/14/16 15:00 23:00 07:00 Intake Total 800 ml 270 ml Output Total 600 ml 700 ml 600 ml Balance -600 ml 100 ml -330 ml Exam Constitutional: alert, frail, oriented Psych: no complaints Head: atraumatic, normocephalic Eyes: nl conjunctiva Neck: supple Respiratory: diminished breath sounds Cardiovascular: regular rate and rhythm Gastrointestinal: soft Musculoskeletal: nl extremities to inspection Extremities: normal pulses Neurological: nl mental status Results Result Diagram: 05/14/16 0605 05/13/16 0522 Results 24 hrs Laboratory Tests Test 05/13/16 11:06 05/13/16 13:05 05/13/16 17:53 05/13/16 19:28 Creatine Kinase 1014 H 670 H Creatine Kinase Index 1.0 1.1 Creatinine Kinase MB (Mass) 10.40 H 7.57 H Troponin I 1.810 *H 1.800 *H Bedside Glucose 99 104 Test 05/13/16 20:55 05/14/16 01:40 05/14/16 05:58 05/14/16 06:05 Bedside Glucose 152 131 149 Basophils # 0.0 Basophils % 0.0 Eosinophils # 0.0 Eosinophils % 0.2 Hematocrit 45.4 # Hemoglobin 15.2 # Lymphocytes # 0.7 L Lymphocytes % 12.3 L Magnesium Level 2.1 Mean Corpuscular Hemoglobin 30.4 Mean Corpuscular Hemoglobin Concent 33.5 Mean Corpuscular Volume 90.8 Mean Platelet Volume 10.9 H Monocytes # 0.7 Monocytes % 11.3 H Neutrophils # 4.4 Neutrophils % 75.5 Nucleated Red Blood Cells # 0.0 Nucleated Red Blood Cells % 0.0 Phosphorus Level 3.5 Platelet Count 291 # Red Blood Count 5.00 # Red Cell Distribution Width 12.5 White Blood Count 5.8 # Test 05/14/16 08:24 Bedside Glucose 160 Medications Medications Current Medications Enoxaparin Sodium (Lovenox) 65 mg Q12 SC Last administered on 05/13/16 20:36; Admin Dose 65 MG; Start 05/12/16 at 23:00 Aspirin (Halfprin) 81 mg DAILY PO Last administered on 05/13/16 09:13; Admin Dose 81 MG; Start 05/13/16 at 09:00 Atorvastatin Calcium (Lipitor) 20 mg DAILY@21 PO Last administered on 20:33; Admin Dose 20 MG; Start 05/13/16 at 21:00 Insulin Aspart (Novolog Insulin Pen) NOVOLOG *MODERATE* ALGORI... Q4 SC Last administered on 05/14/16 06:06; Admin Dose 2 UNIT; Start 05/13/16 at 01:00 Miscellaneous Information 1 ea NOTE XX ; Start 05/12/16 at 23:00 Glucose (Glutose) 15 gm Q15M PRN PO DECREASED GLUCOSE; Start 05/12/16 at 23:00 Glucose (Glutose) 22.5 gm Q15M PRN PO DECREASED GLUCOSE; Start 05/12/16 at 23: 00 Dextrose (D50w Syringe) 25 ml Q15M PRN IV DECREASED GLUCOSE; Start 05/12/16 at 23:00 Dextrose (D50w Syringe) 50 ml Q15M PRN IV DECREASED GLUCOSE; Start 05/12/16 at 23:00 Glucagon (Glucagen) 1 mg Q15M PRN IM DECREASED GLUCOSE; Start 05/12/16 at 23:00 Glucose (Glutose) 15 gm Q15M PRN BUCCAL DECREASED GLUCOSE; Start 05/12/16 at 23 :00 Ondansetron HCl (Zofran Inj) 4 mg Q6H PRN IV NAUSEA AND/OR VOMITING Last administered on 05/13/16 03:34; Admin Dose 4 MG; Start 05/12/16 at 23:00 Acetaminophen (Tylenol Tab) 650 mg Q6H PRN PO PAIN LEVEL 1-3 OR FEVER; Start at 23:00 Morphine Sulfate (morphine) 2 mg Q4H PRN IV PAIN LEVEL 7-10 Last administered on 05/14/16 03:17; Admin Dose 2 MG; Start 05/12/16 at 23:00 Docusate Sodium (Colace) 100 mg Q12H PRN PO CONSTIPATION; Start 05/12/16 at 23: 00 Magnesium Hydroxide (Milk Of Mag) 30 ml DAILY PRN PO CONSTIPATION; Start at 23:00 Bisacodyl (Dulcolax Supp) 10 mg DAILY PRN [place] CONSTIPATION; Start 05/12/16 at 23 :00 Famotidine 20 mg 20 mg Q12 PO Last administered on 05/13/16 20:33; Admin Dose 20 MG; Start 05/13/16 at 09:00 Levofloxacin/ Dextrose 150 ml @ 100 mls/hr Q24H IVPB Last administered on 05/14 05:49; Admin Dose 100 MLS/HR; Start 05/13/16 at 06:00 Vancomycin HCl/ Sodium Chloride (Vancocin/NS) 250 ml @ 83.333 mls/ hr Q24H IVPB Last administered on 05/13/16 19:19; Admin Dose 83.333 MLS/HR; Start at 20:00 SAY AGUILAR MD May 14, 2016 09:51
[2016-05-14] MEDS: SOD CHLORIDE 0.9% 1,000 ML IV SCH ×2 (10:00→20:04)
--- NOTE | 2016-05-14 12:33 | PN ---
Date/Time of Note Date/Time of Note DATE: 05/14/16 TIME: 12:16 Assessment/Plan VTE Prophylaxis VTE Prophylaxis Intervention: LMWH Lines/Catheters IV Catheter Type (from Nrs): Peripheral IV Assessment/Plan Assessment/Plan 81-year-old male with: 1. Right upper lobe, right middle lobe pneumonia with a dense consolidation. Continue Levaquin and Vanco Respiratory status stable on RA Repeat CXR in AM for follow up . 2. Non-ST elevation myocardial infarction. Patient is completely asymptomatic , but he definitely did rule in for non-ST elevation NV. Continue Lovenox and appreciate cardiology eval, plan for Angio today. patient NPO Continue aspirin, beta blockers, and statin. 3. Diabetes mellitus. Continue sliding scale insulin currently. Holding off the metformin and any other form of oral hypoglycemic until angio done. 4. Hyperlipidemia. Continue statin therapy. Prophylaxis: On Lovenox for now for NSTEMI and continue proton pump inhibitors for GI prophylaxis given the noted huge hiatal hernia the patient does have. DISPOSITION: Angio today. PT eval. Subjective 24 Hr Interval Summary Free Text/Dictation Patient remains stable Respiratory status stable and plan for Angiogram today Afebrile with WBC wnl Exam/Review of Systems Vital Signs Vitals Vital Signs Date Time Temp Pulse Resp B/P Pulse Ox O2 Delivery O2 Flow Rate FiO2 05/14/16 12:03 77 05/14/16 11:05 97.8 18 91/51 97 05/13/16 15:00 Nasal Cannula 2.0 05/12/16 22:36 21 Intake and Output 05/13/16 05/13/16 05/14/16 15:00 23:00 07:00 Intake Total 800 ml 270 ml Output Total 600 ml 700 ml 600 ml Balance -600 ml 100 ml -330 ml Exam Constitutional: alert, frail, oriented Respiratory: diminished breath sounds (RUL/RML), normal air movement Cardiovascular: nl pulses, regular rate and rhythm Gastrointestinal: non-tender, soft Musculoskeletal: nl extremities to inspection, nl gait and stance 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, nl mental status, nl speech, other (stronger ) Results Result Diagram: 05/14/16 0605 05/13/16 0522 Results 24 hrs Laboratory Tests Test 05/13/16 13:05 05/13/16 17:53 05/13/16 19:28 05/13/16 20:55 Bedside Glucose 99 104 152 Creatine Kinase 670 H Creatine Kinase Index 1.1 Creatinine Kinase MB (Mass) 7.57 H Troponin I 1.800 *H Test 05/14/16 01:40 05/14/16 05:58 05/14/16 06:05 05/14/16 08:24 Bedside Glucose 131 149 160 Basophils # 0.0 Basophils % 0.0 Eosinophils # 0.0 Eosinophils % 0.2 Hematocrit 45.4 # Hemoglobin 15.2 # Lymphocytes # 0.7 L Lymphocytes % 12.3 L Magnesium Level 2.1 Mean Corpuscular Hemoglobin 30.4 Mean Corpuscular Hemoglobin Concent 33.5 Mean Corpuscular Volume 90.8 Mean Platelet Volume 10.9 H Monocytes # 0.7 Monocytes % 11.3 H Neutrophils # 4.4 Neutrophils % 75.5 Nucleated Red Blood Cells # 0.0 Nucleated Red Blood Cells % 0.0 Phosphorus Level 3.5 Platelet Count 291 # Red Blood Count 5.00 # Red Cell Distribution Width 12.5 White Blood Count 5.8 # Test 05/14/16 12:02 Bedside Glucose 153 Medications Medications Current Medications Aspirin (Halfprin) 81 mg DAILY PO Last administered on 05/13/16 09:13; Admin Dose 81 MG; Start 05/13/16 at 09:00 Insulin Aspart (Novolog Insulin Pen) NOVOLOG *MODERATE* ALGORI... Q4 SC Last administered on 05/14/16 06:06; Admin Dose 2 UNIT; Start 05/13/16 at 01:00 Miscellaneous Information 1 ea NOTE XX ; Start 05/12/16 at 23:00 Glucose (Glutose) 15 gm Q15M PRN PO DECREASED GLUCOSE; Start 05/12/16 at 23:00 Glucose (Glutose) 22.5 gm Q15M PRN PO DECREASED GLUCOSE; Start 05/12/16 at 23: 00 Dextrose (D50w Syringe) 25 ml Q15M PRN IV DECREASED GLUCOSE; Start 05/12/16 at 23:00 Dextrose (D50w Syringe) 50 ml Q15M PRN IV DECREASED GLUCOSE; Start 05/12/16 at 23:00 Glucagon (Glucagen) 1 mg Q15M PRN IM DECREASED GLUCOSE; Start 05/12/16 at 23:00 Glucose (Glutose) 15 gm Q15M PRN BUCCAL DECREASED GLUCOSE; Start 05/12/16 at 23 :00 Ondansetron HCl (Zofran Inj) 4 mg Q6H PRN IV NAUSEA AND/OR VOMITING Last administered on 05/13/16 03:34; Admin Dose 4 MG; Start 05/12/16 at 23:00 Acetaminophen (Tylenol Tab) 650 mg Q6H PRN PO PAIN LEVEL 1-3 OR FEVER; Start at 23:00 Morphine Sulfate (morphine) 2 mg Q4H PRN IV PAIN LEVEL 7-10 Last administered on 05/14/16 03:17; Admin Dose 2 MG; Start 05/12/16 at 23:00 Docusate Sodium (Colace) 100 mg Q12H PRN PO CONSTIPATION; Start 05/12/16 at 23: 00 Magnesium Hydroxide (Milk Of Mag) 30 ml DAILY PRN PO CONSTIPATION; Start at 23:00 Bisacodyl (Dulcolax Supp) 10 mg DAILY PRN [place] CONSTIPATION; Start 05/12/16 at 23 :00 Famotidine 20 mg 20 mg Q12 PO Last administered on 05/13/16 20:33; Admin Dose 20 MG; Start 05/13/16 at 09:00 Levofloxacin/ Dextrose 150 ml @ 100 mls/hr Q24H IVPB Last administered on 05/14 05:49; Admin Dose 100 MLS/HR; Start 05/13/16 at 06:00 Vancomycin HCl/ Sodium Chloride (Vancocin/NS) 250 ml @ 83.333 mls/ hr Q24H IVPB Last administered on 05/13/16 19:19; Admin Dose 83.333 MLS/HR; Start at 20:00 Atorvastatin Calcium 40 mg 40 mg DAILY@21 PO ; Start 05/14/16 at 21:00 Sodium Chloride (NS) 1,000 ml @ 75 mls/hr [id number] IV ; Start 05/14/16 at 10:00 Procedures Procedures Echocardiogram Report Patient Name: DINORA HERNANDEZ Gender: Male Date: 1935 Study Date: 13-May-2016 Truer Pinion And Wheel: Saúl Cason RDCS Location: 12 Ref. Physician: JERMAINE VIDES Quality: Good Procedures: Transthoracic echocardiogram with complete 2D, M-Mode, and doppler examination. Indications: NSTEMI. 2D/M Mode Doppler Measurement Value Normal Ranges Measurement Value Normal Ranges LVIDd 2D 4.7 3.5 - 5.6 cm AV Peak Zia 1.0 m/sec LVIDs 2D 2.8 2.1 - 4.1 cm AV Peak PG 4.0 mmHg FS 2D 40.7 % LVOT Peak Zia 0.8 m/sec LVPWd 2D 1.0 0.6 - 1.1 cm LVOT Peak PG 3.0 mmHg IVSd 2D 0.9 0.6 - 1.1 cm MV E Peak Zia 0.5 m/sec IVS/LVPW 2D 0.9 MV A Peak Zia 0.9 m/sec AoR Diam 2D 3.0 2.0 - 3.7 cm MV E/A 0.5 LA/Ao 2D 1 0 - 1 MV Decel Time 148 msec EDV 2D 105.0 cm3 MV E/A 0.5 ESV 2D 22.0 cm3 TR Peak Zia 3.2 m/sec LA Dimen 2D 3.1 2.3 - 4.0 cm TR Peak PG 41.0 mmHg RVSP 44.0 mmHg Findings Left Ventricle: Normal left ventricular systolic function. Normal left ventricular cavity size. Mild asymmetric septal hypertrophy. Ejection fraction is visually estimated at 60 %. Tissue Doppler/Mitral Doppler indices are consistent with impaired relaxation (Stage I diastolic dysfunction). Right Ventricle: Normal right ventricular size. Normal right ventricular systolic function. Left Atrium: The left atrium is normal in size. Right Atrium: The right atrium is normal in size. Mitral Valve: Normal appearance and function of the mitral valve with trace physiologic regurgitation. Aortic Valve: No significant aortic stenosis or insufficiency. Aortic cusps appear mildly calcified. Tricuspid Valve: Normal appearance of the tricuspid valve. Estimated peak PA systolic pressure 44 mmHg. There is mild to moderate tricuspid regurgitation. Pulmonic Valve: Normal pulmonic valve appearance. Pericardium: Normal pericardium with no significant pericardial effusion. Aorta: Normal aortic root. IVC: Normal size and normal respiratory collapse consistent with normal right atrial pressure. Conclusions Normal left ventricular systolic function. Normal left ventricular cavity size. Mild asymmetric septal hypertrophy. Ejection fraction is visually estimated at 60 %. Tissue Doppler/Mitral Doppler indices are consistent with impaired relaxation (Stage I diastolic dysfunction). Normal right ventricular size. Normal right ventricular systolic function. The left atrium is normal in size. The right atrium is normal in size. Normal appearance of the tricuspid valve. Estimated peak PA systolic pressure 44 mmHg. There is mild to moderate tricuspid regurgitation. No significant valvular stenosis or regurgitation seen of remaining visualized valves. Normal pericardium with no significant pericardial effusion. Electronically Signed By: Sean Pena 13-May-2016 15:05:10 -0800 VIANNEY VIDES May 14, 2016 12:33 VIANNEY VIDES May 14, 2016 12:33
[2016-05-14 12:42] LABS: POTASSIUM 4.7 mmol/L (3.5-5.1)
[2016-05-14 12:45] LABS: CREATININE 1.15 mg/dl (0.61-1.24)
[2016-05-14 12:46] LABS: CALCIUM 8.7 mg/dl (8.4-10.2)
[2016-05-14] MEDS ORDERED: IODIXANOL LOCM 100 ML BTL ONE ×2 (14:54→15:46)
[2016-05-14] MEDS ORDERED: SOD CHLORIDE 0.9% 500 ML ONE (14:54)
[2016-05-14] MEDS ORDERED: LIDOCAINE 1% (MDV) 20 ML INJ ONE (14:54)
[2016-05-14] MEDS ORDERED: MIDAZOLAM 1 MG/ML 2 ML INJ ONE (14:55)
[2016-05-14] MEDS ORDERED: FENTAnyl 50 MCG/ML VIAL ONE (14:55)
[2016-05-14] MEDS ORDERED: SOD CHLORIDE 0.9% 1,000 ML IV SCH (16:30)
[2016-05-14] MEDS: CLOPIDOGREL 75 MG TAB PO SCH (17:17)
--- NOTE | 2016-05-14 17:52 | ECORPT ---
DATE OF SERVICE: 05/14/2016 RETAIL CUSTOMER SERVICE REPRESENTATIVE: Terry Goldman MD ORDER PLANNER: Sean Pena MD PROCEDURE: 1. Left heart catheterization. 2. Selective left and right coronary angiography. 3. Supervision and interpretation of coronary angiography. 4. Right femoral angiography. PATIENT IDENTIFICATION DATA: This is a very pleasant 81-year-old male patient who was admitted to [facility] with a non-ST elevated myocardial infarction and pneumonia. He wa s urgently taken to the cardiac catheterization laboratory for evaluation of coronary anatomy plus p ercutaneous intervention. Prior to the procedure I explained the patient the benefits and risks of this procedure which include, but are not limited to, , myocardial infarction, stroke, renal fa ilure, groin pain, groin infection, emergent bypass of vascular surgery, loss of limb, need for aspi rin or Plavix or . He fully understands and agrees and wished to proceed. MEDICATIONS USED: 1. Lidocaine 2% subcutaneously 8 mL. 2. Versed a total of 1 mg IV. 3. Fentanyl a total of 25 mcg intravenously. PROCEDURE: After informed consent was obtained, the patient was taken to the cardiac catheterizatio n laboratory where the right groin was prepped in the usual sterile fashion. Then 8 mL of 2% lidoca ine was infiltrated in the right groin for local anesthesia. A 5 Nicaraguan sheath was introduced upon first attempt using the modified Seldinger technique into the right femoral artery. Subsequently, a 6 [place]ar[place]uan JL4 and a 6 [place]araguan JR4 catheter was used for selective left and right coronary angiography respectively. A J wire was used to change all catheters at any time. This was proceeded by a rig t femoral angiogram. Subsequently, all catheters were removed and manual pressure was applied until good hemostasis was obtained. There were no complications during the procedure. Total amount of c ontrast used was 20 mL. Total fluoro time was 4.2 minutes. HEMODYNAMICS: Opening aortic pressure is 108/46/68. Left ventricular pressures are 134/0 with left ventricular end diastolic pressure of 30 mmHg. There was no gradient during pullback of the pigtail catheter from the left ventricle ascending aort a. Final aortic pressure is 137/52/79. DESCRIPTION OF CORONARY ANATOMY: The left main artery is calcified but has no evidence of significant obstructive disease. The left anterior descending artery reveals diffuse moderate arteriosclerotic changes without focal obstructive disease. The ostium of the diagonal branch reveals an approximately 60% stenosis but gi jessica the small luminal size of this diagonal branch, medical treatment is advised. The circumflex ar carmen reveals mild arteriosclerotic changes without focal obstructive disease. The right coronary artery reveals a spasm upon insertion of the Jaylen catheter but no focal obstru ction disease. There are diffuse arteriosclerotic changes in the distal section of the PDA at the P LA. RIGHT FEMORAL ANGIOGRAM: The sheath entry point is visualized past the bifurcation as there is no s ignificant stenosis. CONCLUSION: This is an 81-year-old male patient with a non-ST elevation myocardial infarction who r eveals moderate arteriosclerotic changes throughout without focal obstructive disease. Medical ther apies to the patient and the patient's family. Dictated By: TERRY LERNER/LAURIE Conf#: [id number] DID#: [id number]
[2016-05-14] MEDS: VANCOMYCIN 750 MG in SOD CHLORIDE 0.9% 150 ML IVPB SCH (20:01)
[2016-05-14] MEDS: ATORVASTATIN 40 MG TAB PO SCH (20:51)
[2016-05-15] VITALS (13 sets, daily range): BP systolic 114–134; BP diastolic 46–60; PULSE 53–195; RESP 16–20
[2016-05-15] MEDS: INSULIN ASPART [NOVOLOG] 3 ML PEN SC SCH ×6 (01:00→20:59)
[2016-05-15 06:20] LABS: ADD SCAN DIFF NO
[2016-05-15 06:48] LABS: POTASSIUM 3.6 mmol/L (3.5-5.1)
[2016-05-15 06:49] LABS: EOSINOPHILS # 0.1 10^3/ul (0.0-0.5); HEMATOCRIT 35.3 % (42.0-52.0); HEMOGLOBIN 11.8 g/dl (14.0-18.0); LYMPHOCYTES # 0.9 10^3/ul (0.8-2.9); LYMPHOCYTES % 13.9 % (15.0-51.0); MEAN CORPUSCULAR HEMOGLOBIN 30.2 pg (29.0-33.0); MEAN CORPUSCULAR HGB CONC 33.4 g/dl (32.0-37.0); MEAN CORPUSCULAR VOLUME 90.3 fl (82.0-101.0); MEAN PLATELET VOLUME 10.8 fl (7.4-10.4); MONOCYTE # 0.7 10^3/ul (0.3-0.9); MONOCYTES % 10.4 % (0.0-11.0); NEUTROPHIL # 4.6 10^3/ul (1.6-7.5); NEUTROPHILS % 73.9 % (39.0-77.0); PLATELET COUNT 259 10^3/UL (140-415); RED BLOOD COUNT 3.91 10^6/ul (4.70-6.10); RED CELL DISTRIBUTION WIDTH 12.3 % (11.5-14.5); WHITE BLOOD COUNT 6.3 10^3/ul (4.8-10.8)
[2016-05-15 06:50] LABS: CREATININE 0.97 mg/dl (0.61-1.24)
[2016-05-15 06:50] LABS: MAGNESIUM 1.9 mg/dl (1.7-2.5); PHOSPHORUS 2.8 mg/dl (2.5-4.9)
[2016-05-15 06:51] LABS: CALCIUM 8.4 mg/dl (8.4-10.2)
[2016-05-15] MEDS: CLOPIDOGREL 75 MG TAB PO SCH (08:58)
[2016-05-15] MEDS: ASPIRIN (EC) 81 MG TAB PO SCH (08:58)
[2016-05-15] MEDS: FAMOTIDINE 20 MG TAB PO SCH (08:58)
--- NOTE | 2016-05-15 11:28 | RADRPT ---
PROCEDURE: XR Chest. CLINICAL INDICATION: Pneumonia. Dyspnea. Follow up TECHNIQUE: PA and lateral chest x-ray. COMPARISON: Chest x-ray dated 05/12/2016 FINDINGS: Dense right upper lobe pneumonia is improved when compared to the prior study. Small right basilar pleural effusion is now identified. Elsewhere, the remainder of the lungs are stable and clear. Th e cardiac silhouette is enlarged. Retrocardiac hiatal hernia is identified. Aortic atherosclerotic vascular calcifications are present. There is no evidence for pneumothorax on either side. The rudolph rrounding osseous structures are remarkable for benign chronic senescent changes. IMPRESSION: 1. Improving pneumonia within the right upper lung. 2. Small developing right basilar pleural effusion. 3. Cardiomegaly with a retrocardiac hiatal hernia. 4. No pneumothorax is identified at this time. 5. Vascular calcifications consistent with atherosclerosis. RPTAT: HMJB .Waqar Sampson MD, Date Time Electronically viewed and signed by .Waqar Sampson MD, on 05/15/2016 11:28 .B/
[2016-05-15] MEDS ORDERED: POTASSIUM CHLORIDE (SR) 20 MEQ TAB PO STA (12:46)
--- NOTE | 2016-05-15 12:50 | PN ---
Date/Time of Note Date/Time of Note DATE: 05/15/16 TIME: 12:47 Assessment/Plan VTE Prophylaxis VTE Prophylaxis Intervention: LMWH Lines/Catheters IV [facility]ter Type (from [facility]): Peripheral IV Urinary Cath still in place: No Assessment/Plan Assessment/Plan 81-year-old male with: 1. Right upper lobe, right middle lobe pneumonia with a dense consolidation. Improving. Continue Levaquin outpatient x 10 more days. D/c plan home after PT eval today if not in AM at the latest Respiratory status stable on RA Repeat CXR today much improved today. 2. Non-ST elevation myocardial infarction. Patient is completely asymptomatic , but he definitely did rule in for non-ST elevation GA. Continue antiplatelets Cardiac diet Continue aspirin/platelets, beta blockers, and statin. 3. Diabetes mellitus. Continue sliding scale insulin currently. Holding off the metformin Resume home meds 4. Hyperlipidemia. Continue statin therapy. Prophylaxis: PPI for GI ppx and ambulatory . DISPOSITION: PT eval today . D/c plan home with HHPT tomorrow AM, all precriptions in chart Subjective 24 Hr Interval Summary Free Text/Dictation Patient doing Ok on RA CXR much improved today and WBC wnl, PT eval today for d/c planning for tomorrow with HHPT Exam/Review of Systems Vital Signs Vitals Vital Signs Date Time Temp Pulse Resp B/P Pulse Ox O2 Delivery O2 Flow Rate FiO2 05/15/16 12:04 58 05/15/16 11:11 98.2 18 134/60 97 05/15/16 08:00 Nasal Cannula 2.0 05/12/16 22:36 21 Intake and Output 05/14/16 05/14/16 05/15/16 15:00 23:00 07:00 Intake Total 150 ml 555 ml Output Total 700 ml Balance 150 ml -145 ml Exam Constitutional: alert, oriented, well developed Respiratory: normal air movement, other (much better aeration RUL/RML) Cardiovascular: nl pulses, regular rate and rhythm Gastrointestinal: non-tender, soft Musculoskeletal: nl extremities to inspection Extremities: normal pulses 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, nl mental status, nl speech, other Results Result Diagram: 05/15/16 0600 05/15/16 0600 Results 24 hrs Laboratory Tests Test 05/14/16 18:09 05/14/16 20:50 05/15/16 01:02 05/15/16 05:00 Bedside Glucose 106 107 110 Magnesium Level 1.9 Phosphorus Level 2.8 Test 05/15/16 05:07 05/15/16 06:00 05/15/16 08:12 Bedside Glucose 121 101 Anion Gap 14 Basophils # 0.0 Basophils % 0.0 Blood Urea Nitrogen 32 H Calcium Level 8.4 Carbon Dioxide Level 25 Chloride Level 103 Creatinine 0.97 Eosinophils # 0.1 Eosinophils % 1.0 Glucose Level 113 Hematocrit 35.3 #L Hemoglobin 11.8 #L Lymphocytes # 0.9 Lymphocytes % 13.9 L Mean Corpuscular Hemoglobin 30.2 Mean Corpuscular Hemoglobin Concent 33.4 Mean Corpuscular Volume 90.3 Mean Platelet Volume 10.8 H Monocytes # 0.7 Monocytes % 10.4 Neutrophils # 4.6 Neutrophils % 73.9 Nucleated Red Blood Cells # 0.0 Nucleated Red Blood Cells % 0.0 Platelet Count 259 Potassium Level 3.6 Red Blood Count 3.91 #L Red Cell Distribution Width 12.3 Sodium Level 138 White Blood Count 6.3 Medications Medications Current Medications Aspirin (Halfprin) 81 mg DAILY PO Last administered on 05/15/16 08:58; Admin Dose 81 MG; Start 05/13/16 at 09:00 Insulin Aspart (Novolog Insulin Pen) NOVOLOG *MODERATE* ALGORI... Q4 SC Last administered on 05/14/16 06:06; Admin Dose 2 UNIT; Start 05/13/16 at 01:00 Miscellaneous Information 1 ea NOTE XX ; Start 05/12/16 at 23:00 Glucose (Glutose) 15 gm Q15M PRN PO DECREASED GLUCOSE; Start 05/12/16 at 23:00 Glucose (Glutose) 22.5 gm Q15M PRN PO DECREASED GLUCOSE; Start 05/12/16 at 23: 00 Dextrose (D50w Syringe) 25 ml Q15M PRN IV DECREASED GLUCOSE; Start 05/12/16 at 23:00 Dextrose (D50w Syringe) 50 ml Q15M PRN IV DECREASED GLUCOSE; Start 05/12/16 at 23:00 Glucagon (Glucagen) 1 mg Q15M PRN IM DECREASED GLUCOSE; Start 05/12/16 at 23:00 Glucose (Glutose) 15 gm Q15M PRN BUCCAL DECREASED GLUCOSE; Start 05/12/16 at 23 :00 Ondansetron HCl (Zofran Inj) 4 mg Q6H PRN IV NAUSEA AND/OR VOMITING Last administered on 05/13/16 03:34; Admin Dose 4 MG; Start 05/12/16 at 23:00 Acetaminophen (Tylenol Tab) 650 mg Q6H PRN PO PAIN LEVEL 1-3 OR FEVER; Start at 23:00 Morphine Sulfate (morphine) 2 mg Q4H PRN IV PAIN LEVEL 7-10 Last administered on 05/14/16 03:17; Admin Dose 2 MG; Start 05/12/16 at 23:00 Docusate Sodium (Colace) 100 mg Q12H PRN PO CONSTIPATION; Start 05/12/16 at 23: 00 Magnesium Hydroxide (Milk Of Mag) 30 ml DAILY PRN PO CONSTIPATION; Start at 23:00 Bisacodyl (Dulcolax Supp) 10 mg DAILY PRN PA CONSTIPATION; Start 05/12/16 at 23 :00 Atorvastatin Calcium 40 mg 40 mg DAILY@21 PO Last administered on 05/14/16 20: 51; Admin Dose 40 MG; Start 05/14/16 at 21:00 Sodium Chloride 1,000 ml @ 75 mls/hr [id number] IV Last administered on 20:04; Admin Dose 75 MLS/HR; Start 05/14/16 at 10:00 Vancomycin HCl 750 mg/Sodium Chloride 150 ml @ 75 mls/hr Q24H IVPB Last administered on 05/14/16 20:01; Admin Dose 75 MLS/HR; Start 05/14/16 at 20:00 Levofloxacin/ Dextrose (Levaquin 750 Mg/ D5W 150 ml (Pmx)) 150 ml @ 100 mls/hr Q48H IVPB ; Start 05/16/16 at 06:00 Famotidine (Pepcid) 20 mg DAILY PO Last administered on 05/15/16 08:58; Admin Dose 20 MG; Start 05/15/16 at 09:00 Clopidogrel Bisulfate (plaVIX) 75 mg DAILY PO Last administered on 05/15/16 08 :58; Admin Dose 75 MG; Start 05/14/16 at 16:30 VIANNEY VIDES May 15, 2016 12:50
--- NOTE | 2016-05-15 13:32 | PDOCDIS ---
Discharge Instructions CONDITION Patient Condition: Good HOME CARE INSTRUCTIONS: Special Diet: CARDIAC DIET ACTIVITY: Activity Restrictions: Slowly Increase Activity FOLLOW UP/APPOINTMENTS Appointments Follow up with Cardiology as outpatient within 2 weeks Follow up with PCP within 1 to 2 weeks Home Health PT VIANNEY VIDES May 15, 2016 13:32
[2016-05-15] MEDS ORDERED: CLOP75TA28 PO (13:34)
[2016-05-15] MEDS ORDERED: LACT1CAP57 PO (13:34)
[2016-05-15] MEDS ORDERED: LEVO750T25 PO (13:34)
[2016-05-15] MEDS: SOD CHLORIDE 0.9% 1,000 ML IV SCH (14:48)
--- NOTE | 2016-05-15 15:08 | CONS ---
Date/Time of Note Date/Time of Note DATE: 05/15/16 TIME: 15:06 Assessment/Plan Assessment/Plan Additional Assessment/Plan Pneumonia Non-ST elevation RI type II Coronary artery disease with mild to moderate disease on cardiac catheterization 05/15/2016 Preserved ejection fraction -Patient status post cardiac catheterization yesterday with mild to moderate diffuse disease with no evidence of severe stenosis. Would continue aspirin, Plavix and statin therapy. No beta-svetlana secondary to bradycardia. Pneumonia treatment. Consultation Date/Type/Reason Admit Date/Time May 12, 2016 at 23:21 Initial Consult Date 05/14/16 Type of Consultation: cv Referring Provider: VIANNEY VIDES 24 HR Interval Summary Free Text/Dictation Feeling much better today, denies chest pain, shortness of breath is better Exam/Review of Systems Vital Signs Vitals Vital Signs Date Time Temp Pulse Resp B/P Pulse Ox O2 Delivery O2 Flow Rate FiO2 05/15/16 12:04 58 05/15/16 11:11 98.2 18 134/60 97 05/15/16 08:00 Nasal Cannula 2.0 05/12/16 22:36 21 Intake and Output 05/14/16 05/14/16 05/15/16 15:00 23:00 07:00 Intake Total 150 ml 555 ml Output Total 700 ml Balance 150 ml -145 ml Exam No apparent distress Constitutional: alert, oriented Head: normocephalic Neck: supple Respiratory: other (Coarse breath sounds bilaterally, rhonchorous breath sounds right lung field) Cardiovascular: other (S1-S2 heard), regular rate and rhythm Gastrointestinal: bowel sounds, non-tender, soft Extremities: other (No edema) Results Result Diagram: 05/15/16 0600 05/15/16 0600 Results 24 hrs Laboratory Tests Test 05/14/16 18:09 05/14/16 20:50 05/15/16 01:02 05/15/16 05:00 Bedside Glucose 106 107 110 Magnesium Level 1.9 Phosphorus Level 2.8 Test 05/15/16 05:07 05/15/16 06:00 05/15/16 08:12 Bedside Glucose 121 101 Anion Gap 14 Basophils # 0.0 Basophils % 0.0 Blood Urea Nitrogen 32 H Calcium Level 8.4 Carbon Dioxide Level 25 Chloride Level 103 Creatinine 0.97 Eosinophils # 0.1 Eosinophils % 1.0 Glucose Level 113 Hematocrit 35.3 #L Hemoglobin 11.8 #L Lymphocytes # 0.9 Lymphocytes % 13.9 L Mean Corpuscular Hemoglobin 30.2 Mean Corpuscular Hemoglobin Concent 33.4 Mean Corpuscular Volume 90.3 Mean Platelet Volume 10.8 H Monocytes # 0.7 Monocytes % 10.4 Neutrophils # 4.6 Neutrophils % 73.9 Nucleated Red Blood Cells # 0.0 Nucleated Red Blood Cells % 0.0 Platelet Count 259 Potassium Level 3.6 Red Blood Count 3.91 #L Red Cell Distribution Width 12.3 Sodium Level 138 White Blood Count 6.3 Medications Medications Current Medications Aspirin (Halfprin) 81 mg DAILY PO Last administered on 05/15/16 08:58; Admin Dose 81 MG; Start 05/13/16 at 09:00 Insulin Aspart (Novolog Insulin Pen) NOVOLOG *MODERATE* ALGORI... Q4 SC Last administered on 05/14/16 06:06; Admin Dose 2 UNIT; Start 05/13/16 at 01:00 Miscellaneous Information 1 ea NOTE XX ; Start 05/12/16 at 23:00 Glucose (Glutose) 15 gm Q15M PRN PO DECREASED GLUCOSE; Start 05/12/16 at 23:00 Glucose (Glutose) 22.5 gm Q15M PRN PO DECREASED GLUCOSE; Start 05/12/16 at 23: 00 Dextrose (D50w Syringe) 25 ml Q15M PRN IV DECREASED GLUCOSE; Start 05/12/16 at 23:00 Dextrose (D50w Syringe) 50 ml Q15M PRN IV DECREASED GLUCOSE; Start 05/12/16 at 23:00 Glucagon (Glucagen) 1 mg Q15M PRN IM DECREASED GLUCOSE; Start 05/12/16 at 23:00 Glucose (Glutose) 15 gm Q15M PRN BUCCAL DECREASED GLUCOSE; Start 05/12/16 at 23 :00 Ondansetron HCl (Zofran Inj) 4 mg Q6H PRN IV NAUSEA AND/OR VOMITING Last administered on 05/13/16 03:34; Admin Dose 4 MG; Start 05/12/16 at 23:00 Acetaminophen (Tylenol Tab) 650 mg Q6H PRN PO PAIN LEVEL 1-3 OR FEVER; Start at 23:00 Morphine Sulfate (morphine) 2 mg Q4H PRN IV PAIN LEVEL 7-10 Last administered on 05/14/16 03:17; Admin Dose 2 MG; Start 05/12/16 at 23:00 Docusate Sodium (Colace) 100 mg Q12H PRN PO CONSTIPATION; Start 05/12/16 at 23: 00 Magnesium Hydroxide (Milk Of Mag) 30 ml DAILY PRN PO CONSTIPATION; Start at 23:00 Bisacodyl (Dulcolax Supp) 10 mg DAILY PRN [place] CONSTIPATION; Start 05/12/16 at 23 :00 Atorvastatin Calcium 40 mg 40 mg DAILY@21 PO Last administered on 05/14/16 20: 51; Admin Dose 40 MG; Start 05/14/16 at 21:00 Sodium Chloride 1,000 ml @ 75 mls/hr [id number] IV Last administered on 14:48; Admin Dose 75 MLS/HR; Start 05/14/16 at 10:00 Levofloxacin/ Dextrose (Levaquin 750 Mg/ D5W 150 ml (Pmx)) 150 ml @ 100 mls/hr Q48H IVPB ; Start 05/16/16 at 06:00 Famotidine (Pepcid) 20 mg DAILY PO Last administered on 05/15/16 08:58; Admin Dose 20 MG; Start 05/15/16 at 09:00 Clopidogrel Bisulfate (plaVIX) 75 mg DAILY PO Last administered on 05/15/16 08 :58; Admin Dose 75 MG; Start 05/14/16 at 16:30 Sean Pena DO May 15, 2016 15:08
[2016-05-15] MEDS: VANCOMYCIN 750 MG in SOD CHLORIDE 0.9% 150 ML IVPB SCH (20:05)
[2016-05-15] MEDS: LACTOBACILLUS RHAMNOSUS CAP PO SCH (20:55)
[2016-05-15] MEDS: ATORVASTATIN 40 MG TAB PO SCH (20:55)
[2016-05-16] VITALS (10 sets, daily range): BP systolic 108–148; BP diastolic 59–68; PULSE 50–57; RESP 19–20
[2016-05-16] MEDS: INSULIN ASPART [NOVOLOG] 3 ML PEN SC SCH ×5 (01:13→17:00)
[2016-05-16] MEDS ORDERED: LEVOFLOXACIN 750MG/D5W (PMX) 150 ML IVPB SCH (06:00)
--- NOTE | 2016-05-16 07:55 | DS ---
Date/Time of Note Date/Time of Note DATE: 05/16/16 TIME: 07:50 Discharge Summary Admission/Discharge Info Admit Date/Time May 12, 2016 at 23:21 Discharge Date/Time May 16, 2016 Final Diagnosis NSTEMI, enterococcus UTI Patient Condition: Good Consults Cardiology Procedures Echo Blood, urine cultures Pulmonary angiogram Hx of Present Illness 81-year-old man well-known to me from his faithful care for his longtime partner , a recent frequent patient of ours, who presented three days ago with 5 days of progressive generalized weakness, cough, decreased appetite, and mild shortness of breath. Previously very healthy, treated only for diabetes and hyperlipidemia. Hospital Course He had a fever of 100.9 in the emergency department. White blood cell count was within normal limits. But his portable chest x-ray showed right upper lobe dense consolidation, and troponin was elevated at 6, despite the absence of chest pain or EKG abnormalities. A CT angiogram was negative for pulmonary embolism. He was treated for NSTEMI, and started on Lovenox anticoagulation. He was also treated with cefepime and vancomycin, with Levaquin added when urine culture showed sensitive Enterococcus. Troponins trended down. Cardiology consultation with Dr. Terry Goldman led to an echocardiogram showing EF 60%, with mildly asymmetric septal hypertrophy and mild to moderate tricuspid regurgitation. The angiogram showed a moderate right pleural effusion. He felt very well this morning, with no chest or other discomfort. No nausea. Neurologically intact. The plan was to continue Levaquin outpatient x 10 more days, and to discharge home with Home Health support for him and his partner, Sami, who is being discharged today from [facility]. Also plan to continue antiplatelet agent , aspirin, beta blockers, and statin. He will remain on a cardiac diet. With preserved renal function, he will be restarted on metformin. On exam today, he was calm and comfortable-appearing, breathing room air. Constitutional: alert, oriented, well developed Respiratory: normal air movement, with clear lungs bilaterally. Cardiovascular: nl pulses, regular rate and rhythm Gastrointestinal: non-tender, soft Musculoskeletal: nl extremities to inspection Extremities: normal pulses Neurological: TRACK OILER II-XII intact, nl mental status, nl speech. Home Meds Active Scripts Lactobacillus Rhamnosus* (Culturelle*) 1 Each Cap.sprink, 1 CAP PO DAILY, #30 CAP Prov:MAHOGANY,N'DEYE F 05/15/16 Levofloxacin* (Levaquin*) 750 Mg Tablet, 750 MG PO Q48H for 10 Days, TAB Prov:VIANNEY VIDES 05/15/16 Clopidogrel Bisulfate (Clopidogrel) 75 Mg Tablet, 75 MG PO DAILY for 30 Days, TAB 3 Refills Prov:VIANNEY VIDES 05/15/16 Reported Medications Simvastatin* (Zocor*) 40 Mg Tablet, 40 MG PO DAILY, #30 TAB 05/12/16 Aspirin* (Aspirin* EC) 81 Mg Tablet.dr, 81 MG PO DAILY, TAB 05/12/16 Glimepiride* (Glimepiride*) Unknown Strength Tablet, MG PO WITH BREAKFAST, TAB 05/12/16 Metformin Hcl* (Metformin Hcl*) 500 Mg Tablet, 500 MG PO WITH BREAKFAST DINNE, # 60 TAB 05/12/16 Follow-up Plan Dr. Pena or Dr. Goldman in two weeks; Dr. Jian Rose (PCP) in the next week. Pending Labs Laboratory Tests Test 05/15/16 08:12 05/15/16 20:53 05/16/16 01:08 05/16/16 05:03 Bedside Glucose 101mg/dL (70-220) 216mg/dL (70-220) 184mg/dL (70-220) 125mg/dL (70-220) Test 05/16/16 07:48 Bedside Glucose 123mg/dL (70-220) Copies To: CC: Sean Pena DO; Pradeep VIDESJoshuaSANTOS Simon; TERRY GOLDMAN MD, JOHN P. M.D. May 16, 2016 07:55
--- NOTE | 2016-05-16 08:47 | CONS ---
Date/Time of Note Date/Time of Note DATE: 05/16/16 TIME: 08:46 Assessment/Plan Assessment/Plan Chief Complaint/Hosp Course 1) PNA 2) NSTEMI 3) Preserved LV function 4) DM Problems: Additional Assessment/Plan 1) cath without significant obstructive disease 2) continue current meds 3) dw patient Consultation Date/Type/Reason Admit Date/Time May 12, 2016 at 23:21 Initial Consult Date 05/14/16 Type of Consultation: cv Referring Provider: VIANNEY VIDES Detailed Summary Eyes: no complaints ENT: no complaints Respiratory: no complaints Cardiovascular: no complaints Gastrointestinal: no complaints Genitourinary: no complaints Musculoskeletal: no complaints Skin: no complaints Neurologic: no complaints Exam/Review of Systems Vital Signs Vitals Vital Signs Date Time Temp Pulse Resp B/P Pulse Ox O2 Delivery O2 Flow Rate FiO2 05/16/16 07:25 98.1 56 19 127/59 97 05/16/16 04:00 Room Air 05/15/16 08:00 2.0 05/12/16 22:36 21 Intake and Output 05/15/16 05/15/16 05/16/16 15:00 23:00 07:00 Intake Total 870 ml 240 ml Output Total 800 ml 900 ml Balance 70 ml -660 ml Exam Constitutional: alert, oriented Head: atraumatic, normocephalic Neck: supple Respiratory: clear to auscultation Cardiovascular: regular rate and rhythm Gastrointestinal: soft Musculoskeletal: nl extremities to inspection Results Result Diagram: 05/15/16 0600 05/15/16 0600 Results 24 hrs Laboratory Tests Test 05/15/16 20:53 05/16/16 01:08 05/16/16 05:03 05/16/16 07:48 Bedside Glucose 216 184 125 123 Medications Medications Current Medications Aspirin (Halfprin) 81 mg DAILY PO Last administered on 05/15/16 08:58; Admin Dose 81 MG; Start 05/13/16 at 09:00 Insulin Aspart (Novolog Insulin Pen) NOVOLOG *MODERATE* ALGORI... Q4 SC Last administered on 05/16/16 01:13; Admin Dose 4 UNIT; Start 05/13/16 at 01:00 Miscellaneous Information 1 ea NOTE XX ; Start 05/12/16 at 23:00 Glucose (Glutose) 15 gm Q15M PRN PO DECREASED GLUCOSE; Start 05/12/16 at 23:00 Glucose (Glutose) 22.5 gm Q15M PRN PO DECREASED GLUCOSE; Start 05/12/16 at 23: 00 Dextrose (D50w Syringe) 25 ml Q15M PRN IV DECREASED GLUCOSE; Start 05/12/16 at 23:00 Dextrose (D50w Syringe) 50 ml Q15M PRN IV DECREASED GLUCOSE; Start 05/12/16 at 23:00 Glucagon (Glucagen) 1 mg Q15M PRN IM DECREASED GLUCOSE; Start 05/12/16 at 23:00 Glucose (Glutose) 15 gm Q15M PRN BUCCAL DECREASED GLUCOSE; Start 05/12/16 at 23 :00 Ondansetron HCl (Zofran Inj) 4 mg Q6H PRN IV NAUSEA AND/OR VOMITING Last administered on 05/13/16 03:34; Admin Dose 4 MG; Start 05/12/16 at 23:00 Acetaminophen (Tylenol Tab) 650 mg Q6H PRN PO PAIN LEVEL 1-3 OR FEVER; Start at 23:00 Morphine Sulfate (morphine) 2 mg Q4H PRN IV PAIN LEVEL 7-10 Last administered on 05/14/16 03:17; Admin Dose 2 MG; Start 05/12/16 at 23:00 Docusate Sodium (Colace) 100 mg Q12H PRN PO CONSTIPATION; Start 05/12/16 at 23: 00 Magnesium Hydroxide (Milk Of Mag) 30 ml DAILY PRN PO CONSTIPATION; Start at 23:00 Bisacodyl (Dulcolax Supp) 10 mg DAILY PRN WI CONSTIPATION; Start 05/12/16 at 23 :00 Atorvastatin Calcium 40 mg 40 mg DAILY@21 PO Last administered on 05/15/16 20: 55; Admin Dose 40 MG; Start 05/14/16 at 21:00 Vancomycin HCl 750 mg/Sodium Chloride 150 ml @ 75 mls/hr Q24H IVPB Last administered on 05/15/16 20:05; Admin Dose 75 MLS/HR; Start 05/14/16 at 20:00; Stop 05/16/16 at 23:59 Levofloxacin/ Dextrose (Levaquin 750 Mg/ D5W 150 ml (Pmx)) 150 ml @ 100 mls/hr Q48H IVPB Last administered on 05/16/16 05:51; Admin Dose 100 MLS/HR; Start at 06:00 Famotidine (Pepcid) 20 mg DAILY PO Last administered on 05/15/16 08:58; Admin Dose 20 MG; Start 05/15/16 at 09:00 Clopidogrel Bisulfate (plaVIX) 75 mg DAILY PO Last administered on 05/15/16 08 :58; Admin Dose 75 MG; Start 05/14/16 at 16:30 Lactobacillus Acidophilus/ Rhamnosus (Culturelle) 1 cap BID PO Last administered on 05/15/16 20:55; Admin Dose 1 CAP; Start 05/15/16 at 21:00 SAY AGUILAR MD May 16, 2016 08:47
[2016-05-16] MEDS: FAMOTIDINE 20 MG TAB PO SCH (09:58)
[2016-05-16] MEDS: CLOPIDOGREL 75 MG TAB PO SCH (09:58)
[2016-05-16] MEDS: LACTOBACILLUS RHAMNOSUS CAP PO SCH (09:59)
[2016-05-16] MEDS: ASPIRIN (EC) 81 MG TAB PO SCH (09:59)
[2016-05-16] MEDS: VANCOMYCIN 750 MG in SOD CHLORIDE 0.9% 150 ML IVPB SCH (15:32)
== END 2016-05-16 20:09 | disposition home health service (06) | DRG 280 ==
LOC: E/R 19:20 → TEL 23:21
PROVIDERS: ADMIT Internal Medicine; ATTEND Internal Medicine
PROC: 4A023N7 Measurement of Cardiac Sampling and Pressure, Left Heart, Percutaneous Approach (ICD-10-PCS; principal; 2016-05-14 14:00)
PROC: B2011ZZ Plain Radiography of Multiple Coronary Arteries using Low Osmolar Contrast (ICD-10-PCS; 2016-05-14 14:00)
DX: I21.4 Non-ST elevation (NSTEMI) myocardial infarction (principal); J18.9 Pneumonia, unspecified organism; E11.8 Type 2 diabetes mellitus with unspecified complications; E86.0 Dehydration; I10 Essential (primary) hypertension; I25.10 Atherosclerotic heart disease of native coronary artery without angina pectoris
CPT/HCPCS: 36415; 70450; 71010; 71020; 71275; 75571; 75574; 80048; 80053; 80061; 81001; 81003; 82550; 82553; 82962; 83036; 83605; 83735; 84100; 84484; 85025; 85610; 85730; 87040; 87086; 93005; 93306; 93458; 93970; 94664; 96372; 96374; 96375; 97162; C1769; C1887; C1894; J0692; J1644; J1815; J1956; J2250; J2270; J2405; J3010; J3370; J7030; J7040; J7050; Q9967